=== PATIENT | male | born 1990 | race American Indian/Alaskan Native ===

== ENCOUNTER 2017-05-24 01:04 | Emergency (ER) | payer SELFPAY ==
[2017-05-24] MEDS ORDERED: MOTRIN PO ONE (04:12)
--- NOTE | 2017-05-24 04:14 | Emergency Department Report ---
ED Male HPI - General Chief complaint: Urogenital-Male Stated complaint: BLEEDING PENIS Time Seen by Provider: 05/24/17 03:51 Source: patient Mode of arrival: Ambulatory Limitations: No Limitations - History of Present Illness Initial comments: 27-year-old male presents with 1 year of penile lesions. Patient states he has been tested for multiple STDs including syphilis HIV hepatitis and herpes and has had repeat negative testing. Patient states he has well-demarcated circular lesions around base of penis and on penile shaft. Denies testicular or scrotal pain or swelling denies abdominal pain denies fever or chills. Denies dysuria and/or penile discharge. States she is currently sexually active with one partner. States he has not yet seen a clinical coordinator and is requesting a dermatology referral for this problem. MD Complaint: other (penile lesions) Onset/Timin -: year(s) Location: penis Severity: mild Improves with: none - Related Data Sexually active: Yes Previous Rx's Medication Instructions Recorded Last Taken Type Ibuprofen [Motrin] 800 mg PO Q8HR PRN #30 tablet 05/24/17 Unknown Rx Triamcinolone 0.5% [Kenalog 0.5% 1 applic TP TID PRN #1 tube 05/24/17 Unknown Rx CREAM] Allergies Allergy/AdvReac Type Severity Reaction Status Date / Time No Known Allergies Allergy Unverified 05/24/17 01:25 ED Review of Systems ROS: Stated complaint: BLEEDING PENIS Other details as noted in HPI Constitutional: denies: chills, fever Eyes: denies: eye pain, eye discharge, vision change ENT: denies: ear pain, throat pain Respiratory: denies: cough, shortness of breath, wheezing Cardiovascular: denies: chest pain, palpitations Endocrine: no symptoms reported Gastrointestinal: denies: abdominal pain, nausea, diarrhea Genitourinary: denies: urgency, dysuria Musculoskeletal: denies: back pain, joint swelling, arthralgia Skin: denies: rash, lesions Neurological: denies: headache, weakness, paresthesias Psychiatric: denies: anxiety, depression Hematological/Lymphatic: denies: easy bleeding, easy bruising ED Past Medical Hx - Past Medical History Previous Medical History?: No - Surgical History Past Surgical History?: No - Social History Smoking Status: Never Smoker Substance Use Type: None - Medications Home Medications: Home Medications Medication Instructions Recorded Confirmed Last Taken Type Ibuprofen [Motrin] 800 mg PO Q8HR PRN #30 tablet 05/24/17 Unknown Rx Triamcinolone 0.5% [Kenalog 0.5% 1 applic TP TID PRN #1 tube 05/24/17 Unknown Rx CREAM] ED Physical Exam - General Limitations: No Limitations General appearance: alert, in no apparent distress - Head Head exam: Present: atraumatic, normocephalic - Eye Eye exam: Present: normal appearance, PERRL, EOMI - ENT ENT exam: Present: mucous membranes moist - Neck Neck exam: Present: normal inspection - Respiratory Respiratory exam: Present: normal lung sounds bilaterally. Absent: respiratory distress - Cardiovascular Cardiovascular Exam: Present: regular rate, normal rhythm. Absent: systolic murmur, diastolic murmur, rubs, gallop - GI/Abdominal GI/Abdominal exam: Present: soft, normal bowel sounds - Rectal Rectal exam: Present: deferred - Extremities Exam Extremities exam: Present: normal inspection - Back Exam Back exam: Present: normal inspection - Neurological Exam Neurological exam: Present: alert, oriented X3, CN II-XII intact, normal gait - Psychiatric Psychiatric exam: Present: normal affect, normal mood - Skin Skin exam: Present: warm, dry, intact, normal color. Absent: rash ED Course Vital Signs 05/24/17 05/24/17 01:12 04:21 Temperature 98 F Pulse Rate 83 82 Respiratory 18 18 Rate Blood Pressure 148/87 Blood Pressure 148/87 146/85 [Left] O2 Sat by Pulse 98 100 Oximetry ED Medical Decision Making - Medical Decision Making A/P: Penile lesions, possible molluscum contagiosum penis 1-as patient states he has had multiple tests for herpes and other STDs it is possible patient has molluscum contagiosum lesions on penile shaft. 2- referral to dermatology 3- pt states he has had std testing mutliple times and has been negative for syphilis, hsv, herpes Critical care attestation.: If time is entered above; I have spent that time in minutes in the direct care of this critically ill patient, excluding procedure time. ED Disposition Clinical Impression: Lesion of penis Disposition: DC-01 TO HOME OR SELFCARE Is pt being admited?: No Does the pt Need Aspirin: No Condition: Stable Instructions: Molluscum Contagiosum (ED), Acute Rash (ED) Additional Instructions: [email or web address] Prescriptions: Ibuprofen [Motrin] 800 mg PO Q8HR PRN #30 tablet PRN Reason: Pain Triamcinolone 0.5% [Kenalog 0.5% CREAM] 1 applic TP TID PRN #1 tube PRN Reason: Itching Referrals: [facility] [Provider Group] - 3-5 Days Forms: Work/School Release Form(ED) Time of Disposition: 04:12
[2017-05-24 04:48] VITALS: BP 146/85
== END 2017-05-24 04:21 | disposition home or self-care (01) ==
LOC: ED 01:04
DX: L98.9 Disorder of the skin and subcutaneous tissue, unspecified (principal)
CPT/HCPCS: 99282